=== PATIENT | female | born 1955 | race Caucasian/White ===

== ENCOUNTER 2017-06-22 08:15 | Emergency (ER) | payer OTHER ==
[~2017-06-22] VITALS: Ht 157.5 cm; Wt 52.2 kg
[2017-06-22] MEDS: DIPHTH,PERTUSS(ACELL),TET TOX 0.5 ML DISP.SYRIN. VAX IM ONE (08:45)
--- NOTE | 2017-06-22 08:47 | PHYS DOC ---
Past History Past Medical History: No Pertinent History Past Surgical History: No Surgical History Alcohol Use: None Drug Use: None Adult General Chief Complaint Chief Complaint: LACERATION/AVULSION HPI HPI 62-year-old female presenting to the emergency department today after sustaining a mechanical fall and injuring her head. She reports slipping in her bedroom and hitting her head on the nightstand. She denies loss of consciousness and denies neck pain. She is not on blood thinners. This occurred approximately an hour before arrival. She has mild pain where she sustained a laceration that is nonradiating constant and without alleviating factors. Review of systems is negative for numbness weakness tingling vision changes confusion. She denies neck pain or chest pain. All other review of systems is negative unless otherwise noted in history of present illness. ED course: 62-year-old female presenting to the emergency department after sustaining a mechanical fall. Laceration was repaired in the emergency department using winston. Nexus C-spine rules used. [place] head CT rules applied. No imaging required. The patient was then discharged home in stable condition to follow up with their primary care physician over the next 5-7 days for staple removal. They were to return if their symptoms worsened or if they were concerned for any reason. [id number] discharge instructions and return precautions were given. Patient's questions were answered to their satisfaction. Patient is comfortable plan. Review of Systems Review of Systems SEE ABOVE. Family History Family History EE Allergies Allergies Allergies Coded Allergies Type Severity Reaction Last Updated Verified No Known Drug Allergies 06/22/17 No Physical Exam Physical Exam Constitutional: Well developed, well nourished, no acute distress, non-toxic appearance. [] HENT: Normocephalic, 1.5 cm laceration on the occiput noted without any evidence of depressed skull fracture. Bilateral external ears normal, oropharynx moist, no oral exudates, nose normal. [] Eyes: PERRLA, EOMI, conjunctiva normal, no discharge. [] Neck: Normal range of motion, no tenderness, supple, no stridor. [] Nontender midline cervical spine. Cardiovascular:Heart rate regular rhythm, no murmur [] Lungs & Thorax: Bilateral breath sounds clear to auscultation [] Abdomen: Bowel sounds normal, soft, no tenderness, no masses, no pulsatile masses. [] Skin: Warm, dry, no erythema, no rash. [] Back: No tenderness, no CVA tenderness. [] Extremities: No tenderness, no cyanosis, no clubbing, ROM intact, no edema. [] Neurologic: Mental status: Awake oriented and alert x3 Cranial nerves: Extraocular movements intact, eyebrows álvaro bilaterally smile symmetric, uvula elevation, shoulder shrug intact, tongue protrusion normal DTRs: 2+ Sensation: equal and normal in all extremities Strength: 5/5 in upper and lower extremities bilaterally Psychologic: Affect normal, judgement normal, mood normal. [] Current Patient Data Vital Signs Vital Signs Date Time Temp Pulse Resp B/P (MAP) Pulse Ox O2 Delivery O2 Flow Rate FiO2 06/22/17 08:39 98.2 95 20 95 EKG EKG [] Radiology/Procedures Radiology/Procedures [] Course & Med Decision Making Course & Med Decision Making Pertinent Labs and Imaging studies reviewed. (See chart for details) [] Dragon Disclaimer Dragon Disclaimer This chart was dictated in whole or in part using Voice Recognition software in a busy, high-work load, and often noisy Emergency Department environment. It may contain unintended and wholly unrecognized errors or omissions. Departure Departure: Impression: Primary Impression: Laceration Additional Impression: Scalp laceration Disposition: 01 HOME, SELF-CARE Condition: STABLE Referrals: PCPJIMBO (PCP) Patient Instructions: Laceration Care, Adult Additional Instructions: Thank you for allowing us to participate in your care today. Follow-up in 5-7 days for staple removal. You may return to the ER for this or your primary care doctor. Keep wound clean. Do not submerge and water for 48-72 hours. Keep dry for 24 hours. See attached sheet. Call your Primary Doctor tomorrow and inform them of your visit today. If you do not have a primary care provider you can ask for a list of our primary care providers. Return to the emergency department you have any new or concerning findings. This should be evaluated by the primary care physician and any necessary consulting services for continued management within a few days after discharge. Return to emergency room if you have any new or concerning symptoms including but not limited to fever, chills, nausea, vomiting, intractable pain, any new rashes, chest pain, shortness of air, uncontrolled bleeding, difficulty breathing, and/or vision loss. Laceration Repair Lac Repair Indication: Occipital laceration of the scalp. Procedure: The patient was placed in appropriate position. The area was cleansed with water. The laceration was closed using 3 winston. Total repaired wound length: 1.5 cm. The patient tolerated the procedure well without any complications. Problem Qualifiers CORTNEY TY MD Jun 22, 2017 08:47
[2017-06-22] MEDS ORDERED: LIDOCAINE WITH 8.4% SOD BICARB 3 ML DISP.SYRIN. IJ ONE (09:15)
[2017-06-22 09:16] VITALS: BP 175/93
== END 2017-06-22 09:15 | disposition home or self-care (01) ==
LOC: ER 08:15
DX: S01.01XA Laceration without foreign body of scalp, initial encounter (principal); W01.198A Fall on same level from slipping, tripping and stumbling with subsequent striking against other object, initial encounter; Y93.89 Activity, other specified; Y99.8 Other external cause status; Y92.89 Other specified places as the place of occurrence of the external cause
CPT/HCPCS: 12001; 90471; 90715; 99283-25

== ENCOUNTER 2017-06-30 11:47 | Emergency (ER) | payer OTHER ==
[~2017-06-30] VITALS: Ht 157.5 cm; Wt 52.2 kg
[2017-06-30 11:55] VITALS: BP 155/73
--- NOTE | 2017-06-30 12:28 | ED.ADGEN ---
Past History Past Medical History: No Pertinent History Past Surgical History: No Surgical History Alcohol Use: None Drug Use: None Adult General HPI HPI Patient is a 62-year-old woman, who presents emergency department for staple removal. Patient states that she struck her head against the bedside table 8 days ago, and required 3 winston placed on the right posterior parietal region of her scalp. Patient states that she's had no, dictation system that time, no bleeding, drainage, swelling or pain. Has been ambulating without difficulty, denies any nausea, vomiting, fevers or other complaints. All states he has been showering and performing other daily activities without issue. Review of Systems Review of Systems Constitutional: Denies fever or chills [] Eyes: Denies change in visual acuity, redness, or eye pain [] HENT: Denies nasal congestion or sore throat [] Respiratory: Denies cough or shortness of breath [] Cardiovascular: No additional information not addressed in HPI [] GI: Denies abdominal pain, nausea, vomiting, bloody stools or diarrhea [] : Denies dysuria or hematuria [] Musculoskeletal: Denies back pain or joint pain [] Integument: Denies rash or skin lesions [] Neurologic: Denies headache, focal weakness or sensory changes [] Endocrine: Denies polyuria or polydipsia [] Allergies Allergies Allergies Coded Allergies Type Severity Reaction Last Updated Verified No Known Drug Allergies 06/22/17 No Physical Exam Physical Exam Constitutional: Well developed, well nourished, no acute distress, non-toxic appearance. [] HENT: Normocephalic, atraumatic, bilateral external ears normal, oropharynx moist, no oral exudates, nose normal. Patient with [address] over a 2 cm well-healed laceration with eschar in place, skin is intact without dehiscence noted, no evidence of induration abscess formation or other concerning findings. Area is nontender. [place] removed without issue. Eyes: PERRLA, EOMI, conjunctiva normal, no discharge. [] Skin: Warm, dry, no erythema, no rash. [] Extremities: No tenderness, no cyanosis, no clubbing, ROM intact, no edema. [] Neurologic: Alert and oriented X 3, normal motor function, normal sensory function, no focal deficits noted. [] Psychologic: Affect normal, judgement normal, mood normal. [] Current Patient Data Vital Signs Vital Signs Date Time Temp Pulse Resp B/P (MAP) Pulse Ox O2 Delivery O2 Flow Rate FiO2 06/30/17 11:55 98.1 78 19 98 Room Air EKG EKG Not indicated. [] Radiology/Procedures Radiology/Procedures Not indicated. [] Course & Med Decision Making Course & Med Decision Making Pertinent Labs and Imaging studies reviewed. (See chart for details) Patient with well-appearing well-healed laceration staple closure, winston removed without issue in the emergency department, area cleaned before and afterwards with alcohol, scab left in place. Patient given clear and detailed return instructions with which she voiced understanding and agreement, discharged home in stable condition with plan and precautions as discussed. Final Impression Final Impression [] Problems: Dragon Disclaimer Dragon Disclaimer This electronic medical record was generated, in whole or in part, using a voice recognition dictation system. Departure: Impression: Primary Impression: Removal of winston Disposition: HOME, SELF-CARE Condition: IMPROVED INDU LAWLER DO Jun 30, 2017 12:28
== END 2017-06-30 12:25 | disposition home or self-care (01) ==
LOC: ER 11:47
DX: S01.01XD Laceration without foreign body of scalp, subsequent encounter (principal); X58.XXXD Exposure to other specified factors, subsequent encounter; Y92.89 Other specified places as the place of occurrence of the external cause; Y99.8 Other external cause status
CPT/HCPCS: 99281

== ENCOUNTER 2019-02-23 10:41 | Emergency (ER) | payer MEDICARE, OTHER ==
[~2019-02-23] VITALS: Ht 157.5 cm; Wt 56.7 kg
[2019-02-23 10:45] VITALS: BP 182/101
--- NOTE | 2019-02-23 11:20 | PHYS DOC ---
Past History Past Medical History: No Pertinent History, Hypertension Past Surgical History: No Surgical History Alcohol Use: None Drug Use: None Adult General Chief Complaint Chief Complaint: MECHANICAL FALL HPI HPI Patient is a 63-year-old female presents complaining of left shoulder pain. Patient had a mechanical trip and fall approximately 20 minutes prior to arrival. There was no loss of consciousness. She landed directly on the left shoulder. Increased pain with movement. No home medicines been taken. No weakness, numbness, or tingling. Discomfort is moderate in intensity. No previous history of left shoulder injury.[] Review of Systems Review of Systems Constitutional: Denies fever or chills [] Eyes: Denies change in visual acuity, redness, or eye pain [] HENT: Denies nasal congestion or sore throat [] Respiratory: Denies cough or shortness of breath [] Cardiovascular: No chest pain or palpitations[] GI: Denies abdominal pain, nausea, vomiting, bloody stools or diarrhea [] : Denies dysuria or hematuria [] Musculoskeletal: Denies back pain on see history of present illness[] Integument: Denies rash or skin lesions [] Neurologic: Denies headache, focal weakness or sensory changes [] Endocrine: Denies polyuria or polydipsia [] All other systems were reviewed and found to be within normal limits, except as documented in this note. Allergies Allergies Allergies Coded Allergies Type Severity Reaction Last Updated Verified No Known Drug Allergies 02/23/19 No Physical Exam Physical Exam Constitutional: Well developed, well nourished, no acute distress, non-toxic appearance. [] HENT: Normocephalic, atraumatic, bilateral external ears normal, oropharynx moist, no oral exudates, nose normal. [] Eyes: PERRLA, EOMI, conjunctiva normal, no discharge. [] Neck: Normal range of motion, no tenderness, supple, no stridor. [] Cardiovascular:Heart rate regular rhythm, no murmur [] Lungs & Thorax: Bilateral breath sounds clear to auscultation [] Abdomen: Bowel sounds normal, soft, no tenderness, no masses, no pulsatile masses. [] Skin: Warm, dry, no erythema, no rash. [] Back: No tenderness, no CVA tenderness. [] Extremities: Tenderness over the acromioclavicular region, full active range of motion. Patient is distal neurovascularly intact. A joint below was evaluated and was normal. No clavicular tenderness. no cyanosis, no clubbing, ROM intact, no edema. [] Neurologic: Alert and oriented X 3, normal motor function, normal sensory function, no focal deficits noted. [] Psychologic: Affect normal, judgement normal, mood normal. [] EKG EKG [] Radiology/Procedures Radiology/Procedures Left shoulder 3 views. HISTORY: Pain after a fall 3 views were taken of the left shoulder. There is not evidence of an acute fracture or dislocation or osseous abnormality. There is thoracic scoliosis. IMPRESSION: 1. Negative left shoulder.[] Course & Med Decision Making Course & Med Decision Making Pertinent Labs and Imaging studies reviewed. (See chart for details) ED course: Patient arrived, was placed in bed, and tolerated exam well. She is transported to and from x-ray with any complications. Patient deferred pain medicines while in the emergency department. After the imaging findings were obtained, these were discussed with the patient. A sling was applied. Patient was distally neurovascularly intact after the sling application. She was discharged in improved condition. Chris decision making: There is no evidence of a fracture, dislocation, nor neurologic or vascular injury. No evidence of this being a syncopal episode.[] Dragon Disclaimer Dragon Disclaimer This electronic medical record was generated, in whole or in part, using a voice recognition dictation system. Departure Departure: Impression: Primary Impression: Contusion of left shoulder Disposition: HOME, SELF-CARE Condition: IMPROVED Referrals: CRISTOBAL SRIVASTAVA (PCP) Follow-up in 2 days Patient Instructions: Arm Sling Use-Brief, Contusion, Shoulder Pain Additional Instructions: Follow-up with your regular doctor. Take your arm out of the sling and perform range of motion exercises such as wall walking that was demonstrated in the emergency department. Return to the ER if worsening pain or any other concerns. Scripts Meloxicam (MELOXICAM) 7.5 Mg Tablet 7.5 MG PO DAILY for PAIN, #20 TAB Prov: LACI RODRIGUEZ DO 02/23/19 Problem Qualifiers Primary Impression: Contusion of left shoulder Encounter type: initial encounter Qualified Codes: S40.012A - Contusion of left shoulder, initial encounter LACI RODRIGUEZ DO Feb 23, 2019 11:20
--- NOTE | 2019-02-23 11:28 | RAD ---
Left shoulder 3 views. HISTORY: Pain after a fall 3 views were taken of the left shoulder. There is not evidence of an acute fracture or dislocation or osseous abnormality. There is thoracic scoliosis. IMPRESSION: 1. Negative left shoulder. Electronically signed by: Clyde Colvin MD (02/23/2019 11:25 AM) [facility]
[2019-02-23] MEDS ORDERED: MELO7.5T29 PO (11:36)
== END 2019-02-23 11:47 | disposition home or self-care (01) ==
LOC: ER 10:41
DX: S40.012A Contusion of left shoulder, initial encounter (principal); I10 Essential (primary) hypertension; W01.0XXA Fall on same level from slipping, tripping and stumbling without subsequent striking against object, initial encounter; Y93.89 Activity, other specified; Y92.89 Other specified places as the place of occurrence of the external cause; Y99.8 Other external cause status
CPT/HCPCS: 73030; 99284

== ENCOUNTER → 2020-08-06 | Outpatient (CLI) | payer MEDICARE, OTHER ==
[~2020-08-06] MED LIST: MELO7.5T29 PO
== END | disposition home or self-care (01) ==
LOC: LAB 00:59
PROVIDERS: ATTEND Physician Assistant
DX: Z20.828 Contact with and (suspected) exposure to other viral communicable diseases (principal)
CPT/HCPCS: U0003-CS